=== PATIENT | female | born 1960 | race Caucasian/White ===

== ENCOUNTER 2017-08-27 10:24 | Emergency (ER) | payer MEDICARE, OTHER ==
--- NOTE | 2017-08-27 13:17 | UC ---
Hip/Pelvis Pain - HPI Summary HPI Summary: fell on to right hip when her slipper got caught on a nail coming out of the floor - History Of Current Complaint Chief Complaint: UCLowerExtremity Stated Complaint: RIGHT HIP PAIN S/P FALL Time Seen by Provider: 08/27/17 13:05 Hx Obtained From: Patient ?: No Mechanism Of Injury: fall Onset/Duration: Sudden Onset, Lasting Hours Timing: Constant Severity Initially: Moderate Severity Currently: Moderate Pain Intensity: 8 Pain Scale Used: 0-10 Numeric Location: Discrete At: - right hip/buttock Character Of Pain: Aching, Spasmodic, Stiffness Aggravating Factor(s): Movement, Weight Bearing Alleviating Factor(s): Nothing, Other - has a fen. patch on took oxycodoe prior to arrival Associated Signs And Symptoms: Positive: Negative - Allergies/Home Medications Allergies/Adverse Reactions: Allergies Allergy/AdvReac Type Severity Reaction Status Date / Time doxycycline Allergy Severe See Comment Verified 08/27/17 12:08 Home Medications: Home Medications Aspirin EC Low Dose* [Ecotrin EC Low Dose 81 MG*] 1 tab DAILY 08/27/17 [History Confirmed 08/27/17] Atorvastatin* [Lipitor*] 10 mg PO BEDTIME 08/27/17 [History Confirmed 08/27/17] Dicyclomine CAP* [Bentyl CAP*] 10 mg PO TID PRN 08/27/17 [History Confirmed ] Folic Acid TAB* [Folvite TAB*] 1 tab DAILY 08/27/17 [History Confirmed 08/27/17] Furosemide TAB* [Lasix TAB*] 1 tab DAILY 08/27/17 [History Confirmed 08/27/17] Gabapentin CAP(*) [Neurontin 300 CAP(*)] 300 mg PO BID 08/27/17 [History Confirmed 08/27/17] LORazepam TAB(*) [Ativan 0.5 MG TAB (*)] 0.5 mg DAILY PRN 08/27/17 [History Confirmed 08/27/17] Metoprolol Tartrate TAB* [Lopressor TAB*] 100 mg DAILY 08/27/17 [History Confirmed 08/27/17] Omeprazole CAP* [Prilosec CAP* 20 MG] 20 mg DAILY 08/27/17 [History Confirmed ] Ondansetron TAB* [Zofran 4 MG Tab*] 8 mg PO Q6H PRN 08/27/17 [History Confirmed 08/27/17] Oxybutynin TAB* [Ditropan TAB*] 1 tab BID 08/27/17 [History Confirmed 08/27/17] Spironolactone TAB* [Aldactone TAB 25 MG*] 25 mg BID 08/27/17 [History Confirmed 08/27/17] fentaNYL PATCH 25 MCG/HR* [Duragesic PATCH 25 Mcg/Hr*] 25 mcg Q72HR 08/27/17 [ History Confirmed 08/27/17] oxyCODONE TAB* [Roxycodone TAB 5 mg*] 5 mg PO Q6H PRN 08/27/17 [History Confirmed 08/27/17] PMH/Surg Hx/FS Hx/Imm Hx Previously Healthy: No - chronic pain /neuropathy Endocrine History: Dyslipidemia Cardiovascular History: Hypertension GI/ History: Gastroesophageal Reflux - Surgical History Surgical History: Yes Surgery Procedure, Year, and Place: cyst removed. appendix. b/l sweat glands removed - Family History Known Family History: Positive: None - Social History Occupation: Disabled Lives: Alone Alcohol Use: None Substance Use Type: None Smoking Status (MU): Former Smoker When Did the Patient Quit Smoking/Using Tobacco: 11 years ago Review of Systems Constitutional: Negative Skin: Negative Eyes: Negative ENT: Negative Respiratory: Negative Cardiovascular: Negative Gastrointestinal: Negative Genitourinary: Negative Motor: Decreased ROM - pain right hip and buttock Neurovascular: Decreased Sensation - neuropathy at baseline Musculoskeletal: Negative Neurological: Negative Psychological: Negative Is Patient Immunocompromised?: No All Other Systems Reviewed And Are Negative: Yes Physical Exam Triage Information Reviewed: Yes Appearance: Well-Nourished, Ill-Appearing - chronic, Pain Distress - mild Vital Signs: Initial Vital Signs Temp 98 F 08/27/17 12:08 Pulse 65 08/27/17 12:08 BP 133/69 08/27/17 12:08 Pulse Ox 96 08/27/17 12:08 Vital Signs Reviewed: Yes Eye Exam: Normal Eyes: Positive: Conjunctiva Clear ENT Exam: Normal ENT: Positive: Normal ENT inspection, Hearing grossly normal, Pharynx normal, TMs normal, Sinus tenderness. Negative: Nasal congestion, Tonsillar swelling, Tonsillar exudate, Trismus, Muffled voice, Hoarse voice, Dental tenderness Dental Exam: Normal Neck exam: Normal Neck: Positive: Supple, Nontender, No Lymphadenopathy Respiratory Exam: Normal Respiratory: Positive: Chest non-tender, Lungs clear, Normal breath sounds, No respiratory distress, No accessory muscle use Cardiovascular Exam: Normal Cardiovascular: Positive: RRR, No Murmur, Pulses Normal, Brisk Capillary Refill Musculoskeletal Exam: Other Musculoskeletal: Positive: No Edema, Strength Limited @ - right hip, ROM Limited @ - right hip Neurological Exam: Normal Neurological: Positive: Alert, Muscle Tone Normal Psychological Exam: Normal Skin Exam: Normal Diagnostics - Radiology No standard instances Xray Interpretation: Positive (See Comments) - slightly displaced greater trochantor fx of right hip Radiology Interpretation Completed By: Radiologist Hip Injury Course/Dx - Course Course Of Treatment: transfer to [facility] by EMS, Ice to hip, position of comfort - Differential Dx/Diagnosis Provider Diagnoses: slightly displaced right greater trochanter fx Discharge - Discharge Plan Condition: Good Disposition: TRANS HIGHER LVL OF CARE FAC Referrals: Non Staff,Doctor [Primary Care Provider] -
--- NOTE | 2017-08-27 13:47 | RAD ---
INDICATION: Right hip injury. COMPARISON: There are no prior studies available for comparison. TECHNIQUE: An AP view of the pelvis and frontal and lateral views of the right hip were obtained. FINDINGS: There is a slightly displaced fracture of the right greater trochanter. No additional fractures are seen. 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 IMPRESSION: 1. SLIGHTLY DISPLACED FRACTURE OF THE RIGHT GREATER TROCHANTER. 2. CONSIDER CT IMAGING TO EXCLUDE EXTENSION OF THE FRACTURE INTO THE INTERTROCHANTERIC REGION.
[2017-08-27 14:15] VITALS: BP 156/65
== END 2017-08-27 14:15 | disposition short-term general hospital (02) ==
LOC: UCCORT 10:24
DX: S72.111A Displaced fracture of greater trochanter of right femur, initial encounter for closed fracture (principal); W01.0XXA Fall on same level from slipping, tripping and stumbling without subsequent striking against object, initial encounter; Y93.9 Activity, unspecified; Y92.9 Unspecified place or not applicable; Z88.1 Allergy status to other antibiotic agents; G62.9 Polyneuropathy, unspecified; E78.5 Hyperlipidemia, unspecified; I10 Essential (primary) hypertension; K21.9 Gastro-esophageal reflux disease without esophagitis; Z87.891 Personal history of nicotine dependence
CPT/HCPCS: 99203; G0463